=== PATIENT | female | born 1960 | race Caucasian/White ===

== ENCOUNTER 2019-11-29 15:33 | Outpatient (CLI) | payer OTHER, SELFPAY ==
--- NOTE | 2019-11-29 15:46 | XR_ITS ---
WS: [id number] XR chest 2V* [id number] REASON FOR EXAM: wheezing FINDINGS: The heart and mediastinal interfaces are normal. Scattered mucous plugs in both lung hendricks are seen. These changes are suspicious of bronchial asthma. There is no pneumonia, pleural effusion, pulmonary edema, or mass effect. Hilum and apices are normal. XR/XR chest 2V* [id number] IMPRESSION: Findings suggesting mild bronchial asthma.
== END 2019-11-29 15:34 | disposition home or self-care (01) ==
LOC: RAD 15:36
PROVIDERS: Family Provider Family Medicine; PCP Family Medicine; Visit Provider Family Medicine
DX: R06.2 Wheezing (principal)
CPT/HCPCS: 71046

== ENCOUNTER → 2020-06-12 10:06 | Outpatient (BNVA) | payer OTHER, SELFPAY | PROVIDERS: Family Provider Family Medicine; PCP Family Medicine; Visit Provider Family Medicine | DX: R07.89 Other chest pain (principal); R06.01 Orthopnea; Z68.41 Body mass index [BMI] 40.0-44.9, adult | CPT/HCPCS: 80053; 83880; 85025 ==

== ENCOUNTER 2020-07-04 11:31 | Outpatient (CLI) | payer OTHER, SELFPAY ==
[2020-07-04 11:30] VITALS: BMI 40.9
--- NOTE | 2020-07-04 11:38 | ECG_ITS ---
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 Interpretive Statements NAME OF STUDY: TREADMILL STRESS ECHOCARDIOGRAM INDICATION: Chest Pain PROCEDURE: At the baseline, the patient's blood pressure was 136/79 mm Hg with a heart rate of 73 bpm. The baseline electrocardiogram showed normal sinus rhythm with normal ST-Ts. ??? The patient exercised for4 minutes and 20 seconds on a standard Vijay protocol. Patient attained a maximum heart rate of 140 beats per minute(88 % of the maximum predicted heart rate) with a blood pressure at the peak exercise of 190/70 mm Hg. The EKG at the peak exercise revealed sinus tachycardia with no significant ST-T wave changes. Patient did not have any chest pain or any significant cardiac arrhythmias with the exercise. Isolated PAC's and PVC's were seen in recovery. ??? During the recovery phase, there were no new changes. Blood pressure at the end of the recovery phase was 190/70 mm Hg with a heart rate of 87 beats per minute. Echocardiographic images were obtained at rest with peak exercise and during recovery. ??? CONCLUSION: 1. Normal EKG response to treadmill exercise. 2. No exercise-induced chest pain or cardiac arrhythmia. 3. Decreased exercise tolerance, attained a maximum of 4.6 METs. 4. Echocardiographic portion of the study will be eported separately. Electronically Signed On 07-07-2020 11:12:43 CDT by Laxmi Olson M.D. [id number]
--- NOTE | 2020-07-04 12:15 | USCV_ITS ---
Norma Daniels Age: 60 Gender: F : 1960 Exam Date: 07/04/2020 11:58 Ordering Phys: Adriana Miller DO Technologist: Cale Colon Exam Location: [facility] [place] Indication: chest pain Rhythm: Sinus Patient History: htn,obesity, family history of CAD Cardiac Medications: norberto Medications in past 24 hours: unknown Contrast: Stress Results Protocol: Vijay Total dose(mL): Exercise Duration (min:sec): 4:20 METS: 4.6 Resting HR: 73 Resting BP: 136 / 79 Peak HR: 140 Peak BP: 190 / 79 Max Predicted HR: 158 89 % Max Predicted HR Target HR: 134 Double Product: 74141 Stress Summary: BP Response: normal Reason for Termination: targer hr reached Cardiac Symptoms: sob ECG Analysis Resting ECG: Stress ECG: Arrhythmia: MEASUREMENTS (Male/Female) Normal Values FINDINGS Baseline: Normal left ventricle ejection fraction. No wall motion abnormality noted. Left ventricle ejection fraction is 55%. At peak exercise: No significant wall motion abnormality noted, Augmentation of cavity was good. Left ventricle ejection function remains normal Recovery: No significant wall motion abnormality noted CONCLUSIONS Echocardiographic portion of the stress test is not suggestive of ischemia. EKG segment will be documented separate Jesse Krueger MD (Electronically Signed) Final Date: 04 July 2020 18:23 S
[2020-07-04 12:34] VITALS: BP 190/70; PULSE 87
== END 2020-07-04 11:32 | disposition home or self-care (01) ==
LOC: CDL 11:34
PROVIDERS: PCP Family Medicine; Visit Provider Family Medicine
DX: R07.9 Chest pain, unspecified (principal); R06.01 Orthopnea
CPT/HCPCS: 93017; 93350

== ENCOUNTER → 2020-08-24 08:04 | Outpatient (BNVA) | payer OTHER, SELFPAY | PROVIDERS: PCP Family Medicine; Visit Provider Surgery | DX: Z11.59 Encounter for screening for other viral diseases (principal); R10.13 Epigastric pain | CPT/HCPCS: 87635 ==

== ENCOUNTER 2020-08-29 07:27 | Day surgery (SDC) | payer OTHER, SELFPAY ==
[2020-08-27 17:26] VITALS: BMI 38.9
[2020-08-29 07:39] VITALS: BP 137/81; PULSE 77; RESP 16; TEMP 36.7; O2SAT 98
[2020-08-29] MEDS: sodium chloride 0.9% 1,000 ML 30 ML IV (07:55)
--- NOTE | 2020-08-29 08:18 | ANES.PREANE2 ---
Pre-Anesthetic Assessment Pre-Anesthetic Assessment: Height/Weight: Height 1.6 m Weight 99.79 kg Temp Pulse Resp BP Pulse Ox 98.1 F 77 16 137/81 98 08/29/20 07:39 08/29/20 07:39 08/29/20 07:39 08/29/20 07:39 08/29/20 07:39 Preop Diagnosis: Epigastric pain Proposed Procedure: Operation Date: 08/29/20 08:30 Proposed Procedures p EGD 29657 R10.13(Not Applicable) - Luigi Ugarte MD Familial anesthetic complications: None Was Beta Jacky taken within 24 hours: N/A Last intake: Intake Last Liquid Date 08/28/20 Last Liquid Time 20:00 Last Solid Date 08/28/20 Last Solid Time 19:00 Social: Social History: No alcohol and No tobacco Exam: Pre-Anes Outpt Exam: alert, oriented x 3, clear to auscultation bilaterally and regular rate & rhythm Airway: Cervical ROM: WNL MP: 3 Dentition: Full CV/HEM: CV/HEM: HTN Comments: normal stress tests GI: GI: GERD Anesthetic Plan: ASA status: 2 Anesthesia: MAC Risk of > 500 ml blood loss (7ml/kg in children): No Meds/Allergies Current Medications: Current Medications Generic Name Dose Route Start Last Admin Trade Name Freq PRN Reason Stop Dose Admin Sodium Chloride 1,000 mls @ 30 ml s/hr 08/29/20 07:45 08/29/20 07:55 Sodium Chloride 0.9% IV 08/30/20 07:44 30 mls/hr .Q24H LUCILA Administration PFSH Anesthesia PFSH: Medical History Bilateral hand pain Essential hypertension STEFFEN (stress urinary incontinence, female) Surgical History H/O carpal tunnel repair H/O tubal ligation History of rotator cuff surgery Family History Other CAD (coronary artery disease) Cancer Parkinson disease Denies family history of Anesthesia complication Bleeding disorder Social History Smoking and tobacco status: never smoked Alcohol intake: never Household members: spouse Marital status: Current occupational status: employed History of recent travel: No Data Anesthesia Cardiac Studies: No Data to Display
--- NOTE | 2020-08-29 09:17 | W.PM.OPSUD ---
Surgery/Procedure H&P Update DATE OF PROCEDURE: August 29, 2020 DATE H&P PERFORMED: 08/02/20 H&P UPDATE INFORMATION: I have reviewed H&P completed within last 30 days, I have examined patient prior to procedure and No changes to prior documentation PREOP DIAGNOSIS: Epigastric pain PRIMARY INDICATION FOR PROCEDURE: The same PLANNED PROCEDURE: Operation Date: 08/29/20 08:30 Proposed Procedures p EGD 88246 R10.13(Not Applicable) - Luigi Ugarte MD
[2020-08-29 09:45] VITALS: BP 115/88; PULSE 74; RESP 18; TEMP 36.6; O2SAT 95
[2020-08-29 10:00] VITALS: BP 120/73; PULSE 74; RESP 18; O2SAT 98
--- NOTE | 2020-08-29 21:11 | ANE.PACU2 ---
Inpatient post-anesthesia follow up: Airway intact: Yes Vital signs: Temperature 97.8 F Pulse Rate 74 Respiratory Rate 18 Blood Pressure 120/73 Pulse Oximetry 98 Oxygen Delivery Me thod Room Air Oxygen Flow Rate Fraction of Inspir ed Oxygen Hydration adequate: Yes Nausea and vomiting: No Pain level: 1 Mental status: Baseline
[2020-08-30 06:04] LABS: H. Pylori / CLO Test Negative
== END 2020-08-29 10:20 | disposition home or self-care (01) ==
PROVIDERS: PCP Family Medicine; Visit Provider Surgery
PROC: 0DJ08ZZ Inspection of Upper Intestinal Tract, Via Natural or Artificial Opening Endoscopic (ICD-10-PCS; CPT 43235; principal; 2020-08-29 08:30)
DX: K21.00 Gastro-esophageal reflux disease with esophagitis, without bleeding (principal); K44.9 Diaphragmatic hernia without obstruction or gangrene; K29.70 Gastritis, unspecified, without bleeding; I10 Essential (primary) hypertension
CPT/HCPCS: 12345; 43239; 87077; J7030

== ENCOUNTER 2020-10-17 08:49 | Outpatient (CLI) | payer OTHER, SELFPAY ==
--- NOTE | 2020-10-17 08:30 | MM_ITS ---
WS: [id number] BILATERAL DIGITAL SCREENING MAMMOGRAPHY WITH CAD CLINICAL INFORMATION: screening mammo HISTORY: Screening mammogram. No current complaints. COMPARISON: TECHNIQUE: Bilateral CC and MLO views. FINDINGS: Scattered fibroglandular densities bilaterally. No suspicious focal mass, asymmetry, calcifications, or architectural distortion. No evidence of malignancy. Incidental stable intramammary lymph nodes. MM/[place] [id number] IMPRESSION: BI-RADS: 2-Benign FOLLOW UP: 1 Year Follow-up Recommend return to annual screening mammography.
== END 2020-10-17 08:50 | disposition home or self-care (01) ==
LOC: RADSHAW 08:52
PROVIDERS: PCP Family Medicine; Visit Provider Family Medicine
DX: Z12.31 Encounter for screening mammogram for malignant neoplasm of breast (principal)
CPT/HCPCS: 77067

== ENCOUNTER → 2021-01-25 12:30 | Outpatient (BNVA) | payer OTHER, SELFPAY | PROVIDERS: PCP Family Medicine; Visit Provider Family Medicine | DX: K29.70 Gastritis, unspecified, without bleeding (principal); Z13.6 Encounter for screening for cardiovascular disorders | CPT/HCPCS: 80053 ==

== ENCOUNTER → 2021-02-07 13:27 | Outpatient (BNVA) | payer OTHER, SELFPAY | PROVIDERS: PCP Family Medicine; Visit Provider Family Medicine | DX: L98.9 Disorder of the skin and subcutaneous tissue, unspecified (principal); K29.70 Gastritis, unspecified, without bleeding | CPT/HCPCS: 88304 ==

== ENCOUNTER → 2021-10-31 11:43 | Outpatient (BNVA) | payer OTHER, SELFPAY | PROVIDERS: PCP Family Medicine; Visit Provider Family Medicine | DX: K29.70 Gastritis, unspecified, without bleeding (principal); I10 Essential (primary) hypertension; K44.9 Diaphragmatic hernia without obstruction or gangrene; N39.3 Stress incontinence (female) (male); K29.30 Chronic superficial gastritis without bleeding; M79.641 Pain in right hand; M79.642 Pain in left hand | CPT/HCPCS: 80053; 80061; 82043; 85025 ==

== ENCOUNTER → 2022-01-06 10:35 | Outpatient (BNVA) | payer OTHER, SELFPAY | PROVIDERS: PCP Family Medicine; Visit Provider Family Medicine | DX: I10 Essential (primary) hypertension (principal); Z01.419 Encounter for gynecological examination (general) (routine) without abnormal findings; J01.90 Acute sinusitis, unspecified; B96.89 Other specified bacterial agents as the cause of diseases classified elsewhere | CPT/HCPCS: 80053; 80061; 82043; 85025; 88175 ==

== ENCOUNTER → 2022-07-07 10:40 | Outpatient (BNVA) | payer OTHER, SELFPAY | PROVIDERS: PCP Family Medicine; Visit Provider Family Medicine | DX: I10 Essential (primary) hypertension (principal) | CPT/HCPCS: 80053 ==

== ENCOUNTER 2022-07-14 20:13 | Emergency (ER) | payer OTHER, SELFPAY ==
--- NOTE | 2022-07-14 20:16 | XRR_ITS ---
PROCEDURE INFORMATION: Exam: XR Left Ankle Exam date and time: 07/14/2022 9:08 PM Age: 62 years old Clinical indication: Pain; Ankle; Left; Additional info: Injury. Left ankle films are marked incorrect TECHNIQUE: Imaging protocol: Radiologic exam of the Left ankle. Views: 3 or more views. COMPARISON: No relevant prior studies available. FINDINGS: Bones/joints: Distal fibular tip horizontal minimally displaced fracture with overlying soft tissue swelling. Calcified heel spur. Soft tissues: See Bones/joints finding. XR/XR ankle LT min 3V* [id number] IMPRESSION: 1. Distal fibular tip horizontal minimally displaced fracture with overlying soft tissue swelling. 2. Calcified heel spur.
[2022-07-14 20:25] VITALS: BP 168/83; PULSE 79; RESP 16; TEMP 36.2; O2SAT 99
--- NOTE | 2022-07-14 21:03 | ED_ITS ---
HPI - Extremity Problem General: Chief complaint: Extremity Injury, Lower Stated complaint: Left ankle injury Time Seen by Provider: 07/14/22 21:03 History of Present Illness: 62-year-old female comes in today with injury to the left ankle. Patient reports she was walking across the yard and excellently stepped in a hole injuring her ankle. Patient reports pain with weightbearing. On exam patient has lateral swelling of the left ankle. Pulses are intact. Associated symptoms: Deny fever(s) or rash Review of Systems Const: Denies: fever(s) Resp: Denies: dyspnea GI: Denies: abdominal pain Musc: Reports: extremity pain Skin/Breast: Denies: rash PFSH ED PFSH: Medical History Bilateral hand pain Essential hypertension Eustachian tube dysfunction STEFFEN (stress urinary incontinence, female) Surgical History H/O carpal tunnel repair H/O colonoscopy 2018 H/O esophagogastroduodenoscopy 08/31 H/O tubal ligation History of rotator cuff surgery Family History Other CAD (coronary artery disease) Cancer Parkinson disease Denies family history of Anesthesia complication Bleeding disorder Social History Smoking and tobacco status: never smoked Alcohol intake: never Household members: spouse Marital status: Current occupational status: employed History of recent travel: No Physical Exam Const: COMMON NORMALS: alert HENMT: COMMON NORMALS: normocephalic HEAD & SCALP: normocephalic Neck/C-Spine: COMMON NORMALS: full ROM Resp: COMMON NORMALS: normal respiratory effort Cardio: COMMON NORMALS: regular rate RATE: regular rate Extremity: LEFT LOWER EXTREMITY: Yes ankle joint (Lateral swelling and tenderness. Pulses and cap refill are intact distally) Left ankle: Yes inspection, Yes palpation and Yes ROM Neuro: SENSORIUM/ORIENTATION: Yes alert Skin: COMMON NORMALS: turgor normal GENERAL SKIN EXAM: turgor normal Course Vital Signs: Vital signs: Vital Signs Temperature 97.2 F L 07/14/22 20:25 Pulse Rate 79 07/14/22 20:25 Respiratory Rate 16 07/14/22 20:25 Blood Pressure 168/83 07/14/22 20:25 Pulse Oximetry 99 07/14/22 20:25 Oxygen Delivery Me thod 07/14/22 20:25 MDM - Extremity (Nontraumatic) Medical Decision Making 62-year-old female comes in today with injury to the left ankle. On exam we note swelling and tenderness to the lateral aspect of the left ankle. Distal pulses and sensation are intact. Differential diagnosis includes sprain, fracture, dislocation. X-ray notes incomplete fracture of the distal fibula. Recommend walking boot and a walker and follow-up with podiatry for further evaluation and treatment. Patient reported understanding and agreed to plan. Discharge Plan Discharge Patient Disposition: Home Clinical Impression: Fractured fibula Qualifiers: Encounter type: initial encounter Fibula location: distal Fracture type: closed Fracture morphology: other fracture Laterality: left Qualified Code(s): S82.832A - Other fracture of upper and lower end of left fibula, initial encounter for closed fracture Condition: Stable Prescriptions: New hydrocodone-acetaminophen 5-325 mg tablet 1 tab PO Q8H PRN (Reason: pain (scale score 7-10)) Qty: 7 0RF No Action fluticasone propionate 50 mcg/actuation spray,suspension 1 spray intranasal BID PRN (Reason: nasal congestion) Qty: 16 1RF Rx Instructions: administer into each nostril lisinopril 5 mg tablet See Rx Instructions .ROUTE .COMPLEX Qty: 90 1RF Dose Instruction: TAKE 1 TABLET BY MOUTH EVERY DAY Rx Instructions: TAKE 1 TABLET BY MOUTH EVERY DAY dexlansoprazole [Dexilant] 60 mg capsule,biphase delayed releas See Rx Instructions .ROUTE .COMPLEX Qty: 90 1RF Dose Instruction: TAKE ONE CAPSULE BY MOUTH EVERY DAY Rx Instructions: TAKE ONE CAPSULE BY MOUTH EVERY DAY oxybutynin chloride 10 mg tablet extended release 24 hr See Rx Instructions .ROUTE .COMPLEX Qty: 90 1RF Dose Instruction: TAKE 1 TABLET BY MOUTH EVERY DAY Rx Instructions: TAKE 1 TABLET BY MOUTH EVERY DAY atorvastatin 40 mg tablet See Rx Instructions .ROUTE .COMPLEX Qty: 90 1RF Dose Instruction: TAKE 1 TABLET BY MOUTH EVERY DAY Rx Instructions: TAKE 1 TABLET BY MOUTH EVERY DAY Discharge Orders: Discharge ED (Routine); Ordered 07/14/22 Ordered By: Bruce J Campa Other Ambulatory Orders: DME: Miscellaneous (Order) Location: None Selected Ordered By: Bruce Campa DME: Walker (Order) Location: None Selected Ordered By: Bruce Campa Referrals: Adriana Miller DO [Primary Care Provider] - Patient Instructions: Ankle Fracture (ED), Opioid Safety Activity Restrictions/Additional Instructions: Home and rest. Activity as tolerated. Use acetaminophen and ibuprofen for pain. Use hydrocodone for severe pain. Follow-up with body straightener for further treatment and evaluation. Use a walker until he can walk comfortably on the injured extremity. Follow-up with primary care as needed. Return to ER for new concerns. Coding Level of Care Code ED Transfer Driver for Jeremi Michael
[2022-07-14] MEDS: ondansetron 4 MG Tablet PO (21:42)
[2022-07-14] MEDS: HYDROcodone-acetaminophen 5-325 mg Tablet 1 TAB PO (21:42)
--- NOTE | 2022-07-15 04:19 | DCPLANNER ---
Addendum entered by Ana Escobar 07/18/22 13:59: Patient had a follow up appointment scheduled with ortho - patient did attend appointment. Original Note: car inspection and repair manager had message to schedule a follow up appointment for patient with ortho. car inspection and repair manager sent patients information to the front office staff at ortho. Patients information will be printed and reviewed. Clinic will call patient with appointment information.
== END 2022-07-14 22:13 | disposition home or self-care (01) ==
PROVIDERS: Emergency Provider Nurse Practitioner Family; PCP Family Medicine
DX: S82.832A Other fracture of upper and lower end of left fibula, initial encounter for closed fracture (principal); I10 Essential (primary) hypertension; W18.42XA Slipping, tripping and stumbling without falling due to stepping into hole or opening, initial encounter
CPT/HCPCS: 73610; 99283; Q0162

== ENCOUNTER → 2022-07-30 13:13 | Outpatient (BNVA) | payer OTHER, SELFPAY | PROVIDERS: PCP Family Medicine; Visit Provider Podiatrist Foot & Ankle Surgery | DX: S99.912A Unspecified injury of left ankle, initial encounter (principal); X58.XXXA Exposure to other specified factors, initial encounter; R60.9 Edema, unspecified; S82.402A Unspecified fracture of shaft of left fibula, initial encounter for closed fracture | CPT/HCPCS: 73610 ==

== ENCOUNTER → 2022-08-13 13:37 | Outpatient (BNVA) | payer OTHER, SELFPAY | PROVIDERS: PCP Family Medicine; Visit Provider Podiatrist Foot & Ankle Surgery | DX: S82.402A Unspecified fracture of shaft of left fibula, initial encounter for closed fracture (principal); S99.912A Unspecified injury of left ankle, initial encounter; R60.9 Edema, unspecified; X58.XXXA Exposure to other specified factors, initial encounter | CPT/HCPCS: 73610 ==

== ENCOUNTER 2022-08-13 15:51 | Outpatient (CLI) | payer OTHER, SELFPAY | END 2022-08-13 15:52 | disposition home or self-care (01) | LOC: SPT 15:52 | PROVIDERS: PCP Family Medicine; Visit Provider Podiatrist Foot & Ankle Surgery | DX: Z46.89 Encounter for fitting and adjustment of other specified devices (principal); M25.572 Pain in left ankle and joints of left foot | CPT/HCPCS: 97760; L1902 ==

== ENCOUNTER → 2022-09-10 13:15 | Outpatient (BNVA) | payer OTHER, SELFPAY | PROVIDERS: PCP Family Medicine; Visit Provider Podiatrist Foot & Ankle Surgery | DX: S82.402A Unspecified fracture of shaft of left fibula, initial encounter for closed fracture; R60.9 Edema, unspecified; X58.XXXA Exposure to other specified factors, initial encounter | CPT/HCPCS: 73610 ==

== ENCOUNTER → 2022-12-22 08:37 | Outpatient (BNVA) | payer OTHER, SELFPAY | PROVIDERS: PCP Family Medicine; Visit Provider Student in an Organized Health Care Education/Training Program | DX: M75.42 Impingement syndrome of left shoulder (principal) | CPT/HCPCS: 73030 ==

== ENCOUNTER 2022-12-30 07:35 | Outpatient (RCR) | payer OTHER, SELFPAY | END 2023-01-09 23:59 | disposition home or self-care (01) | LOC: SOT 07:35 | PROVIDERS: PCP Family Medicine; Visit Provider Student in an Organized Health Care Education/Training Program | DX: M25.512 Pain in left shoulder (principal) | CPT/HCPCS: 97110; 97165 ==

== ENCOUNTER → 2023-01-05 08:36 | Outpatient (BNVA) | payer OTHER, SELFPAY | PROVIDERS: PCP Family Medicine; Visit Provider Family Medicine | DX: I10 Essential (primary) hypertension (principal); E78.5 Hyperlipidemia, unspecified | CPT/HCPCS: 80053; 80061; 82043; 85025 ==

== ENCOUNTER 2023-01-15 09:14 | Outpatient (CLI) | payer OTHER, SELFPAY ==
--- NOTE | 2023-01-15 09:24 | MM_ITS ---
WS: [id number] BILATERAL SCREENING DIGITAL TOMOSYNTHESIS MAMMOGRAM WITH CAD HISTORY: screening mammogram COMPARISON: 10/17/199931/10 and 31/10/2017 Bilateral CC and MLO views with tomosynthesis and synthetic mammography submitted. Computer aided det ection analyzed. Breast composition: There are scattered areas of fibroglandular density. No suspicious masses, microc alcifications or architectural distortion. MM/[place] [id number] IMPRESSION: BI-RADS: 1-Negative FOLLOW UP: 1 Year Follow-up
== END 2023-01-15 09:15 | disposition home or self-care (01) ==
LOC: RAD 09:17
PROVIDERS: PCP Family Medicine; Visit Provider Family Medicine
DX: Z12.31 Encounter for screening mammogram for malignant neoplasm of breast (principal)
CPT/HCPCS: 77063; 77067

== ENCOUNTER → 2023-05-01 11:45 | Outpatient (BNVA) | payer MEDICARE, OTHER, SELFPAY | PROVIDERS: PCP Family Medicine; Visit Provider Family Medicine | DX: R53.83 Other fatigue (principal) | CPT/HCPCS: 84443 ==

== ENCOUNTER 2023-05-27 14:00 | Outpatient (CLI) | payer MEDICARE, OTHER, SELFPAY | END 2023-05-27 14:01 | disposition home or self-care (01) | LOC: SLEEP 05-28 10:06 | PROVIDERS: PCP Family Medicine; Visit Provider Family Medicine | DX: G47.10 Hypersomnia, unspecified (principal) | CPT/HCPCS: G0399 ==

== ENCOUNTER → 2023-07-06 10:38 | Outpatient (BNVA) | payer MEDICARE, OTHER, SELFPAY | PROVIDERS: PCP Family Medicine; Visit Provider Family Medicine | DX: I10 Essential (primary) hypertension (principal); E78.5 Hyperlipidemia, unspecified; N39.3 Stress incontinence (female) (male); G47.33 Obstructive sleep apnea (adult) (pediatric) | CPT/HCPCS: 80053 ==

== ENCOUNTER → 2023-12-28 11:38 | Outpatient (BNVA) | payer MEDICARE, OTHER, SELFPAY | PROVIDERS: PCP Family Medicine; Visit Provider Family Medicine | DX: I10 Essential (primary) hypertension (principal); Z13.6 Encounter for screening for cardiovascular disorders; E11.9 Type 2 diabetes mellitus without complications | CPT/HCPCS: 80053; 80061; 82043; 85025 ==

== ENCOUNTER 2024-01-21 08:11 | Outpatient (CLI) | payer MEDICARE, OTHER, SELFPAY ==
--- NOTE | 2024-01-21 08:30 | MM_ITS ---
WS: [id number] BILATERAL SCREENING DIGITAL TOMOSYNTHESIS MAMMOGRAM WITH CAD HISTORY: screening COMPARISON: 01/15/2023, 10/17/2020 Bilateral CC and MLO views with tomosynthesis and synthetic mammography submitted. Computer aided det ection analyzed. Breast composition: There are scattered areas of fibroglandular density. No suspicious masses, microc alcifications or architectural distortion. Benign calcification central RIGHT breast. IMPRESSION: MM/[place] [id number] BI-RADS: 2-Benign FOLLOW UP: 1 Year Follow-up
== END 2024-01-21 08:12 | disposition home or self-care (01) ==
LOC: RAD 08:12
PROVIDERS: PCP Family Medicine; Visit Provider Family Medicine
DX: Z12.31 Encounter for screening mammogram for malignant neoplasm of breast (principal)
CPT/HCPCS: 77063; 77067

== ENCOUNTER → 2024-10-19 14:07 | Outpatient (BNVA) | payer MEDICARE, OTHER, SELFPAY | PROVIDERS: PCP Family Medicine; Visit Provider Family Medicine | DX: R06.09 Other forms of dyspnea (principal); I70.90 Unspecified atherosclerosis | CPT/HCPCS: 71045 ==